=== PATIENT | male | born 1970 | race Two or more races ===

== ENCOUNTER 2024-03-29 14:32 | Emergency (ER) | payer OTHER ==
[2024-03-29 14:46] VITALS: BP 110/77; PULSE 103; RESP 16; TEMP 97.7; BMI 26.9
[2024-03-29] MEDS ORDERED: KETOROLAC TROMETHAMINE 30 MG/1 ML VIAL ONE (16:10)
[2024-03-29] MEDS: KETOROLAC TROMETHAMINE 30 MG/1 ML VIAL IM ONE (16:21)
== END 2024-03-29 20:16 | disposition home or self-care (01) ==
LOC: JERFT 14:32
PROC: 3E0133Z Introduction of Anti-inflammatory into Subcutaneous Tissue, Percutaneous Approach (ICD-10-PCS; principal; 2024-03-29)
DX: S86.012A Strain of left Achilles tendon, initial encounter (principal); X50.1XXA Overexertion from prolonged static or awkward postures, initial encounter; Y93.67 Activity, basketball
CPT/HCPCS: 73562-TC-LT-FY; 73610-TC-LT-FY; 73630-TC-LT; 73718-TC-LT; 96372; 99284-25